=== PATIENT | female | born 1930 | race Caucasian/White ===

== ENCOUNTER 2017-11-27 21:34 | Inpatient (IN) | payer MEDICARE, BC ==
[~2017-11-27] VITALS: Ht 162.6 cm; Wt 72.1 kg
--- NOTE | 2017-11-27 21:54 | NUR ---
DR GIOVANNA ESPINOSA MD AT BEDSIDE FOR MSE.
[2017-11-27] MEDS ORDERED: AMLO5TAB2 PO (21:57)
[2017-11-27] MEDS ORDERED: DIVA125T2 PO (21:57)
[2017-11-27] MEDS ORDERED: CYAN-10 IJ (21:57)
[2017-11-27] MEDS ORDERED: LACT-215 PO (21:57)
[2017-11-27] MEDS ORDERED: ATOR40TA PO (21:57)
[2017-11-27] MEDS ORDERED: ASPI-605 PO (21:57)
[2017-11-27] MEDS ORDERED: IV NORMAL SALINE 1000 ML BAG IV ONE ×2 (22:00)
[2017-11-27] MEDS ORDERED: VANCOMYCIN IV 1,000 MG in IV DEXTROSE 5% 250 ML IV ONE (22:00)
[2017-11-27] MEDS ORDERED: GENTAMICIN SULFATE INJ 80 MG in IV DEXTROSE 5% 100 ML IV ONE (22:00)
[2017-11-27] MEDS ORDERED: LEVOFLOXACIN 500 MG/D5W 100ML PIGGYBACK IV ONE (22:00)
--- NOTE | 2017-11-27 22:04 | NUR ---
RADIOLOGY AT BEDSIDE FOR XRAY.
[2017-11-27] MEDS ORDERED: BISA10SU21 RC (22:11)
[2017-11-27] MEDS ORDERED: DONE10TA44 PO (22:11)
[2017-11-27] MEDS ORDERED: DOCU100C36 PO (22:11)
[2017-11-27] MEDS ORDERED: ACET-73 PO (22:11)
[2017-11-27] MEDS ORDERED: LEVO75TA7 PO (22:11)
[2017-11-27] MEDS ORDERED: PANT40TA4 PO (22:11)
[2017-11-27] MEDS ORDERED: VIT1CAPS44 PO (22:11)
[2017-11-27] MEDS ORDERED: TRAM50TA2 PO (22:11)
[2017-11-27] MEDS ORDERED: MEMA10TA PO (22:11)
[2017-11-27] MEDS ORDERED: ONDA8TAB13 PO (22:11)
[2017-11-27] MEDS ORDERED: POLY255P2 PO (22:11)
[2017-11-27] MEDS ORDERED: DULA0.75 SQ (22:11)
[2017-11-27] MEDS ORDERED: CHOL100034 PO (22:11)
[2017-11-27] MEDS ORDERED: QUET25TA PO ×2 (22:11)
[2017-11-27] MEDS ORDERED: NATE120T6 PO (22:11)
[2017-11-27] MEDS ORDERED: QUET50TA PO (22:11)
[2017-11-27] MEDS ORDERED: BLOO-360 IN (22:11)
[2017-11-27] MEDS ORDERED: MIRT15TA7 PO (22:11)
[2017-11-27] MEDS ORDERED: LEVOFLOXACIN 500 MG/D5W 100 ML ONE (22:36)
[2017-11-27] MEDS ORDERED: VANCOMYCIN IV 200 ML ONE (22:36)
[2017-11-27] MEDS ORDERED: GENTAMICIN SULFATE 80 MG/2 ML VIAL ONE (22:36)
[2017-11-27 22:46] LABS: BASOPHILS % (AUTO) 0.5 % (0.0-2.0); EOSINOPHILS # (AUTO) 0.1 K/uL (0.0-0.7); EOSINOPHILS % (AUTO) 0.7 % (0.0-7.0); HEMATOCRIT 42.5 % (31.2-41.9); HEMOGLOBIN 14.4 g/dL (10.9-14.3); LYMPHOCYTES # (AUTO) 2.5 K/uL (20.0-40.0); MEAN CORPUSCULAR HEMOGLOBIN 30.5 uug (24.7-32.8); MEAN CORPUSCULAR HGB CONC 34 g/dL (32.3-35.6); MEAN CORPUSCULAR VOLUME 89.9 fL (75.5-95.3); MONOCYTES # (AUTO) 0.8 K/uL (2.0-10.0); MONOCYTES % (AUTO) 9.4 % (0.0-11.0); NEUTROPHILS # (AUTO) 5.4 K/uL (1.8-8.9); NEUTROPHILS % (AUTO) 61.4 % (38.5-71.5); PLATELET COUNT (AUTO) 226 K/uL (179-408); RED BLOOD CELL COUNT(AUTO) 4.72 MIL/uL (3.63-4.92); WHITE BLOOD COUNT (AUTO) 8.8 K/uL (3.8-11.8)
[2017-11-27 22:54] LABS: CARBON DIOXIDE 27 mmol/L (21-32); CHLORIDE 104 mmol/L (98-107); CREATININE 1.6 mg/dL (0.6-1.3); GLUCOSE 148 mg/dL (74-106); POTASSIUM 4.1 mmol/L (3.5-5.1); UREA NITROGEN, BLOOD 20 mg/dL (7-18)
[2017-11-27 23:07] LABS: ALANINE AMINOTRANSFERASE 24 U/L (14-59); ALKALINE PHOSPHATASE 129 U/L (50-136); ASPARTATE AMINOTRANSFERASE 19 U/L (15-37); BILIRUBIN,DIRECT 0.1 mg/dL (0.0-0.2); BILIRUBIN,TOTAL 0.5 mg/dL (0.2-1.0); TOTAL PROTEIN, SERUM 8.1 g/dL (6.4-8.2)
--- NOTE | 2017-11-27 23:07 | NUR ---
PT RESTING IN A POSITION OF COMFORT. NO DISTRESS NOTED. DAUGHTER AT BEDSIDE
--- NOTE | 2017-11-27 23:29 | NUR ---
CALLED [facility] DOC . WAS TOLD DOC WILL BE PAGED AND CALL BACK
--- NOTE | 2017-11-27 23:45 | NUR ---
PT ASSISTED TO USE BEDPAN, NO DISTRESS NOTED.
[2017-11-27 23:55] LABS: *BILIRUBIN,URIN NEGATIVE (NEGATIVE); *BLOOD, URINE Trace-intact (NEGATIVE); *CLARITY,URINE CLEAR (CLEAR); *COLOR,URINE YELLOW (YELLOW); *KETONES,URINE NEGATIVE (NEGATIVE); *PROTEIN,URINE NEGATIVE (NEGATIVE); *UROBILINOGEN,URINE 0.2 E.U./dl (NORMAL); LEUKOCYTE ESTERASE ,URINE 2+ (NEGATIVE); NITRITE, URINE NEGATIVE (NEGATIVE); UGLUCOSE NEGATIVE (NEGATIVE)
[2017-11-28] MEDS ORDERED: ACETAMINOPHEN 650 MG SUPP.RECT RC PRN
[2017-11-28] MEDS ORDERED: ONDANSETRON 4 MG/2 ML VIAL IV PRN
[2017-11-28 00:05] LABS: BACTERIA,URINE FEW /HPF (NONE SEEN); RBC,URINE 0-3 /HPF (0-3); SQUAMOUS EPITHELIAL CELL,UR FEW /HPF (NONE SEEN)
--- NOTE | 2017-11-28 00:31 | NUR ---
REPORT GIVEN TO OSCAR BRADLEY.
[2017-11-28 00:35] VITALS: BP 144/66
--- NOTE | 2017-11-28 00:47 | NUR ---
Pt. admitted to [facility], under care of Dr. KWONG Belongs List completed
--- NOTE | 2017-11-28 00:50 | NUR ---
ADMITTED 87 YEAR OLD F WITH DX OF ALTERED MENTAL STATUS, AAOX3, AROUSABLE VIA VERBAL STIMULI, NO SIGNS OF RESPIRATORY DISTRESS NOTED. IV SITE ON LAC, PATENT AND INTACT. ROUTINE ADMISSION DONE. PERTINENT ASSESSMENTS DONE. PLAN OF CARE INITIATED. PLACED BED ON LOW, WITH SIDE RAILS UP. CALL AGUIRRE WITHIN REACH.
--- NOTE | 2017-11-28 01:30 | NUR ---
CODE STATUS STILL PENDING, FAMILY'S WISHES DNR FOR PT. , PER SON (HAWA), COPY OF ADVANCE DIRECTIVE WILL BE PROVIDED IN THE MORNING. WILL ENDORSE SITUATION ACCORDINGLY
[2017-11-28 04:00] VITALS: BP 135/64
[2017-11-28] MEDS: LEVOTHYROXINE SODIUM 75 MCG TABLET PO SCH (06:25)
[2017-11-28 06:31] LABS: BASOPHILS # (AUTO) 0.1 K/uL (0.0-8.0); BASOPHILS % (AUTO) 0.9 % (0.0-2.0); EOSINOPHILS # (AUTO) 0.1 K/uL (0.0-0.7); HEMOGLOBIN 13.9 g/dL (10.9-14.3); LYMPHOCYTES # (AUTO) 2.2 K/uL (20.0-40.0); LYMPHOCYTES % (AUTO) 28.5 % (20.5-51.5); MEAN CORPUSCULAR HEMOGLOBIN 30.7 uug (24.7-32.8); MEAN CORPUSCULAR HGB CONC 34 g/dL (32.3-35.6); MEAN CORPUSCULAR VOLUME 90.4 fL (75.5-95.3); MONOCYTES # (AUTO) 0.7 K/uL (2.0-10.0); MONOCYTES % (AUTO) 8.8 % (0.0-11.0); NEUTROPHILS # (AUTO) 4.6 K/uL (1.8-8.9); NEUTROPHILS % (AUTO) 60.8 % (38.5-71.5); PLATELET COUNT (AUTO) 196 K/uL (179-408); RED BLOOD CELL COUNT(AUTO) 4.54 MIL/uL (3.63-4.92); WHITE BLOOD COUNT (AUTO) 7.6 K/uL (3.8-11.8)
--- NOTE | 2017-11-28 06:42 | NUR ---
pt resting comfortably on bed, pt not in distress. IV site on LAC, patent and intact. all needs met and attended. safety measures maintained at all times. call flores within reach.
[2017-11-28 06:50] LABS: ALANINE AMINOTRANSFERASE 21 U/L (14-59); ALKALINE PHOSPHATASE 111 U/L (50-136); ASPARTATE AMINOTRANSFERASE 17 U/L (15-37); BILIRUBIN,TOTAL 0.6 mg/dL (0.2-1.0); CARBON DIOXIDE 28 mmol/L (21-32); CHLORIDE 108 mmol/L (98-107); CREATININE 1.4 mg/dL (0.6-1.3); GLUCOSE 116 mg/dL (74-106); MAGNESIUM 2.1 mg/dL (1.8-2.4); PHOSPHOROUS 3.5 mg/dL (2.5-4.9); POTASSIUM 4.1 mmol/L (3.5-5.1); TOTAL PROTEIN, SERUM 6.9 g/dL (6.4-8.2); UREA NITROGEN, BLOOD 16 mg/dL (7-18)
[2017-11-28] MEDS: DONEPEZIL 10 MG TABLET PO SCH (09:02)
[2017-11-28] MEDS: ASPIRIN EC 81 MG TABLET.DR PO SCH (09:02)
[2017-11-28] MEDS: PANTOPRAZOLE SODIUM 40 MG TABLET.DR PO SCH (09:02)
[2017-11-28 11:23] VITALS: BP 154/73
[2017-11-28 13:13] LABS: *BILIRUBIN,URIN NEGATIVE (NEGATIVE); *BLOOD, URINE NEGATIVE (NEGATIVE); *CLARITY,URINE CLEAR (CLEAR); *COLOR,URINE YELLOW (YELLOW); *KETONES,URINE NEGATIVE (NEGATIVE); *PROTEIN,URINE NEGATIVE (NEGATIVE); *UROBILINOGEN,URINE 0.2 E.U./dl (NORMAL); LEUKOCYTE ESTERASE ,URINE NEGATIVE (NEGATIVE); NITRITE, URINE NEGATIVE (NEGATIVE); PH,URINE 7.5 (5.0-8.0); UGLUCOSE NEGATIVE (NEGATIVE)
[2017-11-28 13:19] LABS: BACTERIA,URINE NONE SEEN /HPF (NONE SEEN); RBC,URINE 0-3 /HPF (0-3); SQUAMOUS EPITHELIAL CELL,UR FEW /HPF (NONE SEEN); WBC,URINE 0-3 /HPF (0-3)
[2017-11-28] MEDS ORDERED: SENN-18 PO (14:44)
[2017-11-28] MEDS ORDERED: MAGN400T26 PO (14:45)
[2017-11-28] MEDS ORDERED: NS IV ONE (14:45)
[2017-11-28] MEDS ORDERED: TRAZ-182 PO (14:45)
[2017-11-28] MEDS ORDERED: MAGN400O6 PO (14:46)
[2017-11-28] MEDS ORDERED: BISA-79 PO (14:46)
[2017-11-28 14:52] LABS: *CREATININE,URINE 46.1 mg/dL (30-125); *URINE TOTAL PROTEIN RANDOM 28.6 mg/dL (<150/24HR)
[2017-11-28 15:21] VITALS: BP 148/75
--- NOTE | 2017-11-28 19:23 | NUR ---
RECEIVED SHIFT REPORT FROM OSCAR LYN. PT RESTING IN BED, NO COMPLAINTS AT THIS TIME. IVF NS INFUSING @ 75 CC/HR VIA 20 G LEFT A/C.
[2017-11-28 20:39] VITALS: BP 151/70
[2017-11-28] MEDS ORDERED: DOCUSATE SODIUM 100 MG CAPSULE PO SCH (21:00)
[2017-11-28] MEDS ORDERED: MEMANTINE HCL 10 MG TABLET PO SCH (21:00)
[2017-11-28] MEDS ORDERED: ATORVASTATIN 40 MG TABLET PO SCH (21:00)
[2017-11-28] MEDS ORDERED: LEVOFLOXACIN 250MG /D5W 250 MG in PREMIXED 1 EACH IV SCH (21:00)
--- NOTE | 2017-11-28 21:27 | NUR ---
PT CARE TRANSFERRED TO OSCAR KAY. REPORT GIVEN. PT STABLE, NO PAIN, C/P, SOB, N/V. IVF NS INFUSING AT 75 CC/HR.
[2017-11-29 04:18] VITALS: BP 140/81
[2017-11-29] MEDS: LEVOTHYROXINE SODIUM 75 MCG TABLET PO SCH (06:30)
[2017-11-29] MEDS: PANTOPRAZOLE SODIUM 40 MG TABLET.DR PO SCH (06:30)
[2017-11-29 06:49] LABS: BASOPHILS # (AUTO) 0.1 K/uL (0.0-8.0); BASOPHILS % (AUTO) 0.8 % (0.0-2.0); EOSINOPHILS # (AUTO) 0.1 K/uL (0.0-0.7); EOSINOPHILS % (AUTO) 0.9 % (0.0-7.0); HEMATOCRIT 41.7 % (31.2-41.9); HEMOGLOBIN 14.2 g/dL (10.9-14.3); LYMPHOCYTES # (AUTO) 2.4 K/uL (20.0-40.0); LYMPHOCYTES % (AUTO) 27.7 % (20.5-51.5); MEAN CORPUSCULAR HEMOGLOBIN 30.8 uug (24.7-32.8); MEAN CORPUSCULAR HGB CONC 34 g/dL (32.3-35.6); MEAN CORPUSCULAR VOLUME 90.4 fL (75.5-95.3); MONOCYTES # (AUTO) 0.8 K/uL (2.0-10.0); MONOCYTES % (AUTO) 8.8 % (0.0-11.0); NEUTROPHILS # (AUTO) 5.4 K/uL (1.8-8.9); NEUTROPHILS % (AUTO) 61.8 % (38.5-71.5); PLATELET COUNT (AUTO) 215 K/uL (179-408); RED BLOOD CELL COUNT(AUTO) 4.61 MIL/uL (3.63-4.92); WHITE BLOOD COUNT (AUTO) 8.7 K/uL (3.8-11.8)
[2017-11-29 06:57] LABS: ALANINE AMINOTRANSFERASE 23 U/L (14-59); ALKALINE PHOSPHATASE 119 U/L (50-136); ASPARTATE AMINOTRANSFERASE 18 U/L (15-37); BILIRUBIN,TOTAL 0.9 mg/dL (0.2-1.0); CARBON DIOXIDE 26 mmol/L (21-32); CHLORIDE 105 mmol/L (98-107); CREATINE KINASE, TOTAL 52 U/L (26-192); CREATININE 1.4 mg/dL (0.6-1.3); GLUCOSE 123 mg/dL (74-106); MAGNESIUM 1.8 mg/dL (1.8-2.4); PHOSPHOROUS 3.7 mg/dL (2.5-4.9); POTASSIUM 3.7 mmol/L (3.5-5.1); TOTAL PROTEIN, SERUM 7.4 g/dL (6.4-8.2); UREA NITROGEN, BLOOD 16 mg/dL (7-18)
--- NOTE | 2017-11-29 07:25 | NUR ---
RECEIVED PATIENT IN BED AWAKE ALERT TO SELF WITH DISORIENTATION ALL NEEDS ANTICIPATED AND SATISFIED WITH MAX ASSIST FOR ALL ADL HEPLOCK LEFT AC REMAIN INTACT WITH NO S/S OF INFILTERATION AT THIS TIME SAFETY ENSURED CALL LIGHTS ARE WITHIN EASY REACH MADE COMFORTABLE AND WILL CONTINUE TO OBSERVE AND MAINTAIN SAFE AND THERAPEUTIC ENVIRONMENT AT ALL TIMES.
[2017-11-29] MEDS: DONEPEZIL 10 MG TABLET PO SCH (09:15)
[2017-11-29] MEDS: ASPIRIN EC 81 MG TABLET.DR PO SCH (09:16)
[2017-11-29 11:28] VITALS: BP 120/69
--- NOTE | 2017-11-29 15:18 | NUR ---
DR FORRESTER HERE TO SEE AND EXAMINE PATIENT SPOKE WITH PATIENTS DAUGHTER MELANIE AT LENGTH AND THE DECISION IS FOR PATIENT TO BE DISCHARGED BACK TO [facility] TODAY.DR FORRESTER AWARE THAT PATIENTS APPETITE HAS BEEN POOR AND THE DAUGHTER MELANIE STATED THAT THE REASON WHY SHE WAS BROUGHT IN IS BECAUSE SHE WAS NOT EATING AND THE DOCTOR STATED WILL DISCHARGE THE PATIENT TO CONTINUE ON ORAL ANTIBIOTICS FOR 7 MORE DAYS AT THE [facility].
[2017-11-29 15:23] VITALS: BP 122/70
--- NOTE | 2017-11-29 15:30 | NUR ---
PATIENTS SON HAWA HERE AND AWARE OF DISCHARGE ORDER AND STATED WILL TAKE HIS MOM IN HIS CAR BACK BECAUSE HE BROUGHT HER INTO THE ED IN HIS CAR.
--- NOTE | 2017-11-29 16:30 | NUR ---
PATIENT DISCHARGED PICKED UP BY HER SON HAWA IN SATISFACTORY CONDITION WITH DISCHARGE INSTRUCTIONS AND PRESCRIPTIONS AND ALL HER PERSONAL BELONGINGS.PATIENTS SON HAWA INSTRUCTED THAT PATIENT HAS TO START TAKING HER L[facility] TODAY AND PER DR FORRESTER HIS OFFICE WILL ARRANGE APPOINTMENT WITH DR BLEVINS OFFICE IN ONE TO TWO WEEKS WHEN I OFFERED TO MAKE THE APPOINTMENT.
[2017-11-30 13:07] LABS: A/G RATIO 0.9 (0.7-1.7); ALBUMIN 3.4 g/dL (2.9-4.4); ALPHA-1-GLOBULIN 0.2 g/dL (0.0-0.4); ALPHA-2-GLOBULIN 0.8 g/dL (0.4-1.0); GAMMA GLOBULIN 1.5 g/dL (0.4-1.8); GLOBULIN, TOTAL 3.6 g/dL (2.2-3.9); M-SPIKE Not Observed g/dL (Not Observed)
== END 2017-11-29 16:30 | DRG 682 ==
LOC: ER 21:39 → MED 11-28 00:23
PROVIDERS: ADMIT Internal Medicine; ATTEND Internal Medicine
DX: N17.0 Acute kidney failure with tubular necrosis (principal); G92 Toxic encephalopathy; E43 Unspecified severe protein-calorie malnutrition; N39.0 Urinary tract infection, site not specified; N18.4 Chronic kidney disease, stage 4 (severe); E86.0 Dehydration; E11.40 Type 2 diabetes mellitus with diabetic neuropathy, unspecified; K21.9 Gastro-esophageal reflux disease without esophagitis; E03.9 Hypothyroidism, unspecified; E11.22 Type 2 diabetes mellitus with diabetic chronic kidney disease; E78.5 Hyperlipidemia, unspecified; E86.1 Hypovolemia; F03.90 Unspecified dementia, unspecified severity, without behavioral disturbance, psychotic disturbance, mood disturbance, and anxiety; J31.0 Chronic rhinitis; Z85.42 Personal history of malignant neoplasm of other parts of uterus; Z86.73 Personal history of transient ischemic attack (TIA), and cerebral infarction without residual deficits; M48.00 Spinal stenosis, site unspecified; H35.30 Unspecified macular degeneration; F41.9 Anxiety disorder, unspecified; F32.9 Major depressive disorder, single episode, unspecified; M19.90 Unspecified osteoarthritis, unspecified site; I12.9 Hypertensive chronic kidney disease with stage 1 through stage 4 chronic kidney disease, or unspecified chronic kidney disease
CPT/HCPCS: 36415; 70030-TC; 71045; 83605; 83735; 83970; 84100; 84155; 84156; 84165; 84300; 84443; 85025; 85730; 87040; 87086; 92610; 93005; 97116; 97530; A4663; J1580; J1956; J2405; J3370; J7030; J7060